=== PATIENT | female | born 1985 | race Hispanic/Latino ===

== ENCOUNTER 2017-01-07 05:35 | Inpatient (IN) ==
[2017-01-07] MEDS ORDERED: PITOCIN 30 UNITS/LR 30 UNITS/500 ML IV.SOLN IV SCH (05:39)
[2017-01-07] MEDS ORDERED: PEPCID PO ONE (05:39)
[2017-01-07] MEDS ORDERED: ZOFRAN IV PRN (05:39)
[2017-01-07] MEDS ORDERED: REGLAN PO ONE (05:39)
[2017-01-07] MEDS ORDERED: KEFZOL 1 GM/D5W 1 GM/50 ML IVPB IV PRN (05:39)
[2017-01-07] MEDS ORDERED: PEPCID PO PRN (05:39)
[2017-01-07] MEDS ORDERED: TYLENOL PO PRN (05:39)
[2017-01-07] MEDS ORDERED: PEPCID IV PRN (05:39)
[2017-01-07] MEDS ORDERED: STADOL IV PRN (05:39)
[2017-01-07] MEDS ORDERED: SODIUM CHLORIDE 0.9% INJ SCH (05:45)
[2017-01-07] MEDS ORDERED: FENTANYL-BUPIV-NS 2 MCG-0.1% 200 ML EPIDURAL PRN (07:38)
[2017-01-07] MEDS: LR 1,000 ML IV SCH ×2 (07:40→09:58)
[2017-01-07] MEDS ORDERED: XYLOCAINE-MPF 1% INJ ONE (07:48)
[2017-01-07] MEDS ORDERED: MINERAL OIL ONE (07:49)
[2017-01-07 07:56] LABS: MANUAL DIFF NEEDED? NO
[2017-01-07 07:59] LABS: BASO% 0.2 % (0.0-0.8); EOS# 0.03 X1000 (0.0-0.7); EOS% 0.3 % (0.0-10.0); HEMATOCRIT 39.5 % (37.0-47.0); HEMOGLOBIN 13.5 g/dL (12.0-16.0); IMM GRAN# 0.05 X1000 (0.0-0.04); IMM GRAN% 0.5 % (0.0-0.5); LYMPH# 1.13 X1000 (1.2-3.4); MCH 31.1 PG (27-31); MCHC 34.2 g/dL (33-37); MONO# 0.58 X1000 (0.11-0.59); MONO% 6.2 % (1.7-9.3); NEUT% 80.8 % (42.2-75.2); PLT 152 X1000 (130-400); RBC 4.34 XMIL (4.2-5.4)
[2017-01-07] MEDS ORDERED: NORCO-5 PO PRN (12:44)
[2017-01-07] MEDS ORDERED: XYLOCAINE-MPF 1% INJ PRN (12:44)
[2017-01-07] MEDS ORDERED: BENADRYL PO PRN (12:44)
[2017-01-07] MEDS ORDERED: HYDROXYZINE PO PRN (12:44)
[2017-01-07] MEDS ORDERED: PITOCIN 30 UNITS/LR 30 UNITS/500 ML IV.SOLN IV ONE (12:44)
[2017-01-07] MEDS ORDERED: PITOCIN IM PRN (12:44)
[2017-01-07] MEDS ORDERED: AMBIEN PO PRN (12:44)
[2017-01-07] MEDS ORDERED: PERI MEDS (DERMOPLAST/NUPERCAINAL/TUCKS) MISC PRN (12:44)
[2017-01-07] MEDS ORDERED: CYTOTEC PO PRN (12:44)
[2017-01-07] MEDS ORDERED: MINERAL OIL PO PRN (12:44)
[2017-01-07] MEDS ORDERED: PITOCIN 20 UNITS/LR 20 UNITS/1,000 ML IV.SOLN IV SCH (12:44)
[2017-01-07] MEDS ORDERED: M-M-R II VACCINE SUBQ ONE (12:44)
[2017-01-07] MEDS ORDERED: HYDROXYZINE IM PRN (12:44)
[2017-01-07] MEDS ORDERED: BOOSTRIX VACCINE IM ONE (12:44)
[2017-01-07] MEDS ORDERED: BENADRYL IV PRN (12:44)
[2017-01-07] MEDS: MOTRIN PO PRN (14:14)
--- NOTE | 2017-01-07 17:49 | OPERATIVE NOTE ---
PROCEDURE DATE: 01/07/2017 PREDELIVERY DIAGNOSIS: Intrauterine at 39 weeks for labor induction. POSTDELIVERY DIAGNOSIS: Intrauterine at 39 weeks for labor induction. PROCEDURE: Vaginal delivery. PHYSICIAN: Derik. ANESTHESIA: IV sedation. FINDINGS: Viable male . No lacerations or tears. Cord was 3 vessels. Placenta was spontaneous and intact. All counts were correct. ESTIMATED BLOOD LOSS: 100 mL. DELIVERY SUMMARY: The patient is a 31-year-old 3, para 2, with estimated date of delivery of 01/11/2017, who has had care since 8 weeks without any issues. She desired labor induction. She was admitted this morning with a favorable cervix. Was artificially ruptured. Soon after was started on Pitocin, received IV pain sedation, reached complete cervical dilatation, began pushing. After approximately 10 minutes of pushing, she delivered a viable male , occiput anterior, over an intact perineum. Once head delivered, shoulders and body delivered without any difficulty and cord was doubly clamped and cut and care of the was taken over by Pediatrics. Cord blood was obtained. Three-vessel cord documented and were noted. Gentle traction on the cord resulted in the delivery of an intact placenta after approximately 3 minutes. Inspection of the vagina and perineum did not reveal any lacerations or tears. There were no blood clots or foreign material. All counts correct. Estimated blood loss 100 mL. Expect routine . cc: Elvis More MD
[2017-01-08] MEDS: PERICOLACE PO SCH ×2 (00:51→21:53)
[2017-01-08 06:05] LABS: MANUAL DIFF NEEDED? NO
[2017-01-08 06:23] LABS: BASO% 0.2 % (0.0-0.8); EOS% 0.9 % (0.0-10.0); HEMATOCRIT 34.1 % (37.0-47.0); HEMOGLOBIN 11.1 g/dL (12.0-16.0); IMM GRAN# 0.04 X1000 (0.0-0.04); IMM GRAN% 0.3 % (0.0-0.5); LYMPH# 1.79 X1000 (1.2-3.4); LYMPH% 15.4 % (20.5-51.1); MCH 30.2 PG (27-31); MCHC 32.6 g/dL (33-37); MCV 92.7 FL (81-99); MONO# 0.79 X1000 (0.11-0.59); MONO% 6.8 % (1.7-9.3); MPV 11.5 FL (7.4-10.4); NEUT% 76.4 % (42.2-75.2); PLT 144 X1000 (130-400); RBC 3.68 XMIL (4.2-5.4)
[2017-01-08 11:03] LABS: URINE SOURCE VOIDED
[2017-01-08 11:04] LABS: BILIRUBIN URINE NEGATIVE (NEGATIVE); BLOOD URINE 4+ (NEGATIVE); CLARITY CLEAR (CLEAR); COLOR PINK; GLUCOSE URINE NEGATIVE (NEGATIVE); LEUKOCYTES URINE TRACE (NEGATIVE); NITRITE URINE NEGATIVE (NEGATIVE); PROTEIN URINE TRACE mg/dL (NEGATIVE); SP GRAVITY URINE 1.005; UROBILINOGEN URINE NORMAL
[2017-01-08 11:08] LABS: UR AMPHETAMINES QUAL NONE DETECTED (NONE DETECT); UR BARBITUATES QUAL NONE DETECTED (NONE DETECT); UR BENZODIAZEPIN QUAL NONE DETECTED (NONE DETECT); UR CANNABINOIDS QUAL NONE DETECTED (NONE DETECT); UR COCAINE QUAL NONE DETECTED (NONE DETECT); UR MDMA QUAL NONE DETECTED (NONE DETECT); UR METHADONE QUAL NONE DETECTED (NONE DETECT); UR METHAMPHETAMINE QUAL NONE DETECTED (NONE DETECT); UR OPIATES QUAL NONE DETECTED (NONE DETECT); UR OXYCODONE QUAL NONE DETECTED (NONE DETECT); UR PCP QUAL NONE DETECTED (NONE DETECT); UR TCA QUAL NONE DETECTED (NONE DETECT)
--- NOTE | 2017-01-08 13:18 | PROGRESS NOTE ---
DATE: 01/08/2017 SUBJECTIVE: She is resting comfortably in bed. She is her baby and seems to have bonded well. She is without complaints. OBJECTIVE: Vital signs: Are stable. She is afebrile, temperature 97.7 degrees, blood pressure 81/86. Neck: Supple. Lungs: Clear. Heart: Regular sinus rhythm. Abdomen: Is distended. Extremities: No cyanosis, clubbing or edema in her extremities. LABORATORY VALUES: Hemoglobin and hematocrit 11/34. Will continue routine and expect discharge in the morning. cc: Elvis More MD
[2017-01-08] MEDS: MOTRIN PO PRN (21:53)
[2017-01-09] MEDS: PRECARE PO SCH (09:38)
--- NOTE | 2017-01-10 06:03 | DISCHARGE SUMMARY ---
ADMISSION DATE: 01/07/2017 DISCHARGE DATE: 01/09/2017 ADMITTING DIAGNOSIS: Term , for labor induction. CONDITION: Stable. DIET: As tolerated. ACTIVITY: Routine . MEDICATIONS: Over the counter nonsteroidals for cramping. A prescription for [place] 5 #14 to use for severe pain. She is to continue her vitamins and I have given her a prescription for stool softeners. DISCHARGE INSTRUCTIONS: She is to follow up in 6 weeks. HOSPITAL COURSE: Ms. Vivas is a 31-year-old, 3, now para 3, who was admitted the morning of the for labor induction. She had an uneventful vaginal delivery later that morning and has done well afterwards. She is currently without complaints. PHYSICAL EXAMINATION: Vital Signs: Stable. She is afebrile. General: She is alert and cooperative, in no distress. Neck: Supple. Lungs: Clear. Heart: Regular sinus rhythm. Abdomen: Distended. Uterus is firm and nontender. Extremities: No cyanosis, clubbing, or edema in her extremities. LABS: Hemoglobin and hematocrit from yesterday were 11 and 34. DISPOSITION: We will discharge with above instructions. cc: Elvis More MD
== END 2017-01-09 12:05 | disposition home or self-care (01) ==
LOC: P.LD 05:35
PROVIDERS: ADMIT Obstetrics & Gynecology; ATTEND Obstetrics & Gynecology